=== PATIENT | female | born 1980 | race Caucasian/White ===

== ENCOUNTER 2017-08-20 13:05 | Emergency (ER) | payer MEDICAID ==
--- NOTE | 2017-08-20 13:19 | EDM.PDOCBH ---
ED HPI GENERAL MEDICAL PROBLEM - General Chief Complaint: Behavioral/Psych Stated Complaint: SUICIDAL IDEATIONS Time Seen by Provider: 08/20/17 13:18 Source of Information: Reports: Patient - History of Present Illness INITIAL COMMENTS - FREE TEXT/NARRATIVE: Patient is voluntarily brought here to the emergency room today by her friend/ roommate for evaluation for suicidal ideations. Patient states that she has been chronically depressed, she was previously on medication for this but has been out for some time now. She has a diagnosis of bipolar disorder, had been seeing psychiatry in [place] but is not currently seeing psychiatry. Patient has not been taking her prescribed medications for several days. She has been taking street benzodiazepines per her report. Patient also has a history of epilepsy that was diagnosed at a very young age. She has been taken off her Tegretol by her provider in [place] over a month ago. Patient primary residence is in [facility], she does not have a provider here in [place]. Patient is currently not working. She states that she passes the time by take drinking alcohol lately as she feels quite depressed. She states that she doesn't have a history of chronic alcohol use this has been a rather recent thing for her that she has been trying to treat her depression with. Patient has a very strong family history of psychiatric illness. Her brother and sister have both committed suicide. Patient is also more depressed as she and her have recently split up, her did go back to [place] with the 13 and 17-year-old children that they have together. Patient's adult child is living on their own. Patient is here today to get help. She states that it "it's time" and she is ready to get away from the alcohol and street benzodiazepines that she has been taking. She also wishes psychiatric help for her depression and suicidal ideations. I did ask patient if she be willing to be hospitalized for this, patient states that she would be. She states that she did pack a bit of extra" in hopes that she will be able to get help she needs. Patient is a full code. - Related Data Allergies Allergy/AdvReac Type Severity Reaction Status Date / Time ondansetron Allergy Rash Verified 08/20/17 13:22 [From Zofran (as hydrochloride)] tramadol Allergy Seizure Verified 08/20/17 13:22 Home Meds: Home Meds Doxepin [SINEquan] 100 mg PO BEDTIME 08/20/17 [History] Gabapentin [Neurontin] 400 mg PO BID 08/20/17 [History] Gabapentin [Neurontin] 800 mg PO BEDTIME 08/20/17 [History] OLANZapine [Olanzapine] 15 mg PO DAILY 08/20/17 [History] Venlafaxine HCl [Venlafaxine ER] 150 mg PO DAILY 08/20/17 [History] hydrOXYzine Pamoate [Hydroxyzine Pamoate] 50 mg PO Q6H PRN 08/20/17 [History] Past Medical History HEENT History: Reports: None Cardiovascular History: Reports: Arrhythmia Respiratory History: Reports: PE Gastrointestinal History: Reports: None Genitourinary History: Reports: UTI, 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 She's not on any antiseizure medications this time) Psychiatric History: Reports: Anxiety, Depression Endocrine/Metabolic History: Reports: None Hematologic History: Reports: Other (See Below) Other Hematologic History: clotting disorder Immunologic History: Reports: None Oncologic (Cancer) History: Reports: None - Infectious Disease History Infectious Disease History: Reports: None - Past Surgical History Female Surgical History: Reports: Section, D&C, Tubal Ligation Social & Family History - Family History Family Medical History: Noncontributory Psychiatric: Reports: Anxiety, Depression, Emotional Problems - Tobacco Use Smoking Status *Q: Current Every Day Smoker Years of Tobacco use: 20 Packs/Tins Daily: 1 Second Hand Smoke Exposure: Yes - Alcohol Use Days Per Week of Alcohol Use: 0 - Recreational Drug Use Recreational Drug Use: No Drug Use in Last 12 Months: Yes Recreational Drug Type: Reports: Ecstasy, Marijuana/Hashish, Other (see below) Recreational Drug Use Frequency: Socially - Living Situation & Occupation Living situation: Reports: with Spouse ED ROS GENERAL - Review of Systems Review Of Systems: See Below Constitutional: Reports: Weakness, Fatigue, Decreased Appetite. Denies: Fever HEENT: Reports: No Symptoms Respiratory: Reports: No Symptoms Cardiovascular: Reports: No Symptoms GI/Abdominal: Reports: Diarrhea, Decreased Appetite. Denies: Abdominal Pain, Black Stool, Bloody Stool, Constipation, Hematemesis, Hematochezia, Melena : Reports: No Symptoms Musculoskeletal: Reports: No Symptoms Skin: Reports: No Symptoms Neurological: Reports: Headache, Seizure (History since young age, none recently.). Denies: Confusion, Dizziness, Numbness, Syncope Hematologic/Lymphatic: Reports: No Symptoms Immunologic: Reports: No Symptoms ED EXAM, BEHAVIORAL HEALTH - Physical Exam Exam: See Below General Appearance: Alert, WD/WN, Anxious COURSE, BEHAVIORAL HEALTH COMP - Course Vital Signs: Last Vital Signs Temp 97.2 F 08/20/17 13:17 Pulse 102 H 08/20/17 13:17 Resp 18 08/20/17 13:17 BP 129/69 08/20/17 13:17 Pulse Ox 99 08/20/17 13:17 Orders, Labs, Meds: Active Orders 24 hr Category Date Time Status EKG 12 Lead [EKG Documentation Completion] [RC] STAT Care 08/20/17 13:40 Active Sodium Chloride 0.9% [Normal Saline] 1,000 ml Med 08/20/17 15:17 Ordered IV ONETIME Medication Orders Sodium Chloride (Normal Saline) 1,000 mls @ 999 mls/hr IV ONETIME ONE Stop: 08/20/17 16:17 Last Admin: 08/20/17 15:35 Dose: 999 mls/hr Laboratory Tests 08/20/17 08/20/17 08/20/17 Range/Units 14:00 14:00 14:00 WBC 5.84 (3.98-10.04) K/mm3 RBC 4.26 (3.98-5.22) M/mm3 Hgb 13.5 (11.2-15.7) gm/L Hct 38.8 (34.1-44.9) % MCV 91.1 (79.4-94.8) fl MCH 31.7 (25.6-32.2) pg MCHC 34.8 (32.2-35.5) g/dl RDW Std Deviation 42.4 (36.4-46.3) fL Plt Count 256 (182-369) K/mm3 MPV 9.8 (9.4-12.3) fl Neutrophils % (Manual) 38 L (40-60) % Band Neutrophils % 0 (0-10) % Lymphocytes % (Manual) 53 H (20-40) % Atypical Lymphs % 0 % Monocytes % (Manual) 5 (2-10) % Eosinophils % (Manual) 2 (0.7-5.8) % Basophils % (Manual) 1 (0.1-1.2) Myelocytes % 1 Platelet Estimate Adequate Plt Morphology Comment Normal RBC Morph Comment Normal Sodium 142 (136-145) mEq/L Potassium 4.1 (3.5-5.1) mEq/L Chloride 105 (98-107) mEq/L Carbon Dioxide 25 (21-32) mEq/L Anion Gap 16.1 H (5-15) BUN 16 (7-18) mg/dL Creatinine 0.7 (0.55-1.02) mg/dL Est Cr Clr Drug Dosing 121.79 mL/min Estimated GFR (MDRD) > 60 (>60) mL/min BUN/Creatinine Ratio 22.9 H (14-18) Glucose 121 H (74-106) mg/dL Calcium 8.5 (8.5-10.1) mg/dL Total Bilirubin 0.2 (0.2-1.0) mg/dL AST 131 H (15-37) U/L ALT 113 H (14-59) U/L Alkaline Phosphatase 102 (46-116) U/L Total Protein 7.3 (6.4-8.2) g/dl Albumin 3.5 (3.4-5.0) g/dl Globulin 3.8 gm/dL Albumin/Globulin Ratio 0.9 L (1-2) TSH 3rd Generation 0.906 (0.358-3.74) uIU/mL Urine Color (Yellow) Urine Appearance (Clear) Urine pH (5.0-8.0) Ur Specific [place] (1.005-1.030) Urine Protein (Negative) Urine Glucose (UA) (Negative) Urine Ketones (Negative) Urine Occult Blood (Negative) Urine Nitrite (Negative) Urine Bilirubin (Negative) Urine Urobilinogen (0.2-1.0) Ur Leukocyte Esterase (Negative) Urine RBC (0-5) /hpf Urine WBC (0-5) /hpf Ur Epithelial Cells (0-5) /hpf Urine Bacteria (FEW) /hpf Urine Mucus (FEW) /hpf Urine HCG, Qual (NEGATIVE) Salicylates 2.5 L (2.8-20) mg/dL Urine Opiates Screen (NEGATIVE) Ur Buprenorphine Scrn (NEGATIVE) Ur Oxycodone Screen (NEGATIVE) Urine Methadone Screen (NEGATIVE) Ur Propoxyphene Screen (NEGATIVE) Acetaminophen 0 L (10-30) ug/mL Ur Barbiturates Screen (NEGATIVE) Ur Tricyclics Screen (NEGATIVE) Ur Phencyclidine Scrn (NEGATIVE) Ur Amphetamine Screen (NEGATIVE) U Methamphetamines Scrn (NEGATIVE) U Benzodiazepines Scrn (NEGATIVE) U Cocaine Metab Screen (NEGATIVE) U Marijuana (THC) Screen (NEGATIVE) Ethyl Alcohol 0.12 (0.00) gm% 08/20/17 08/20/17 08/20/17 Range/Units 14:05 14:05 14:05 WBC (3.98-10.04) K/mm3 RBC (3.98-5.22) M/mm3 Hgb (11.2-15.7) gm/L Hct (34.1-44.9) % MCV (79.4-94.8) fl MCH (25.6-32.2) pg MCHC (32.2-35.5) g/dl RDW Std Deviation (36.4-46.3) fL Plt Count (182-369) K/mm3 MPV (9.4-12.3) fl Neutrophils % (Manual) (40-60) % Band Neutrophils % (0-10) % Lymphocytes % (Manual) (20-40) % Atypical Lymphs % % Monocytes % (Manual) (2-10) % Eosinophils % (Manual) (0.7-5.8) % Basophils % (Manual) (0.1-1.2) Myelocytes % Platelet Estimate Plt Morphology Comment RBC Morph Comment Sodium (136-145) mEq/L Potassium (3.5-5.1) mEq/L Chloride (98-107) mEq/L Carbon Dioxide (21-32) mEq/L Anion Gap (5-15) BUN (7-18) mg/dL Creatinine (0.55-1.02) mg/dL Est Cr Clr Drug Dosing mL/min Estimated GFR (MDRD) (>60) mL/min BUN/Creatinine Ratio (14-18) Glucose (74-106) mg/dL Calcium (8.5-10.1) mg/dL Total Bilirubin (0.2-1.0) mg/dL AST (15-37) U/L ALT (14-59) U/L Alkaline Phosphatase (46-116) U/L Total Protein (6.4-8.2) g/dl Albumin (3.4-5.0) g/dl Globulin gm/dL Albumin/Globulin Ratio (1-2) TSH 3rd Generation (0.358-3.74) uIU/mL Urine Color Yellow (Yellow) Urine Appearance Clear (Clear) Urine pH 6.5 (5.0-8.0) Ur Specific [place] 1.025 (1.005-1.030) Urine Protein Negative (Negative) Urine Glucose (UA) Negative (Negative) Urine Ketones Negative (Negative) Urine Occult Blood Negative (Negative) Urine Nitrite Negative (Negative) Urine Bilirubin Negative (Negative) Urine Urobilinogen 0.2 (0.2-1.0) Ur Leukocyte Esterase Negative (Negative) Urine RBC Not seen (0-5) /hpf Urine WBC 0-5 (0-5) /hpf Ur Epithelial Cells 0-5 (0-5) /hpf Urine Bacteria Many H (FEW) /hpf Urine Mucus Few (FEW) /hpf Urine HCG, Qual Negative (NEGATIVE) Salicylates (2.8-20) mg/dL Urine Opiates Screen Negative (NEGATIVE) Ur Buprenorphine Scrn Negative (NEGATIVE) Ur Oxycodone Screen Negative (NEGATIVE) Urine Methadone Screen Negative (NEGATIVE) Ur Propoxyphene Screen Negative (NEGATIVE) Acetaminophen (10-30) ug/mL Ur Barbiturates Screen Negative (NEGATIVE) Ur Tricyclics Screen Negative (NEGATIVE) Ur Phencyclidine Scrn Negative (NEGATIVE) Ur Amphetamine Screen Negative (NEGATIVE) U Methamphetamines Scrn Negative (NEGATIVE) U Benzodiazepines Scrn Presumptive positive H (NEGATIVE) U Cocaine Metab Screen Negative (NEGATIVE) U Marijuana (THC) Screen Negative (NEGATIVE) Ethyl Alcohol (0.00) gm% Medications Generic Name Dose Route Start Last Admin Trade Name Freq PRN Reason Stop Dose Admin Sodium Chloride 1,000 mls @ 999 mls/hr 08/20/17 15:17 08/20/17 15:35 Normal Saline IV 08/20/17 16:17 999 mls/hr ONETIME ONE Administration Discontinued Medications Generic Name Dose Route Start Last Admin Trade Name Freq PRN Reason Stop Dose Admin Loperamide HCl 4 mg 08/20/17 15:41 Imodium PO 08/20/17 15:42 ONETIME ONE Lorazepam 1 mg 08/20/17 13:41 08/20/17 13:52 Ativan PO 08/20/17 13:42 1 mg ONETIME ONE Administration Lorazepam 0.5 mg 08/20/17 15:41 Ativan IVPUSH 08/20/17 15:42 ONETIME ONE Promethazine HCl 50 mg 08/20/17 14:28 08/20/17 14:49 Phenergan IM 08/20/17 14:29 50 mg ONETIME ONE Administration Medical Clearance: Patient is a current risk of harm to herself and willing to voluntarily be admitted to psychiatry. Urine is positive for benzodiazepenes, ETOH is 0.12. This patient is a current high risk of danger to herself as well as high risk of withdrawal seizure with her history of epilepsy and her recent alcohol abuse. She will need to be transported by ambulance. Dr. Baca/psychiatry at [facility] in [place] is willing to accept the patient. She will arrived via the emergency room, Dr. Almeida will examine her and ensure she is cleared to be admitted to psychiatry at that time. Patient is currently receiving 1 L of this normal saline this to be completed prior to her arrival at [facility]. Must keep IV access due to seizure risk until she arrives at the higher level facility. 08/20/17 15:42 Departure - Departure Time of Disposition: 15:44 Disposition: DC/Tfer to Psych Hosp/Unit 65 Condition: Fair Clinical Impression: Alcohol abuse, Epilepsy Suicidal behavior Qualifiers: Attempted self-injury: without attempted self-injury Qualified Code(s): R46.89 - Other symptoms and signs involving appearance and behavior Depression Qualifiers: Major depression recurrence: recurrent - Discharge Information Referrals: PCP,None [Primary Care Provider] - Forms: ED Department Discharge - My Orders Last 24 Hours: My Active Orders 08/20/17 13:40 EKG 12 Lead [EKG Documentation Completion] [RC] STAT 08/20/17 15:17 Sodium Chloride 0.9% [Normal Saline] 1,000 ml IV ONETIME - Assessment/Plan Last 24 Hours: My Active Orders 08/20/17 13:40 EKG 12 Lead [EKG Documentation Completion] [RC] STAT 08/20/17 15:17 Sodium Chloride 0.9% [Normal Saline] 1,000 ml IV ONETIME
[2017-08-20 13:22] VITALS: BP 129/69
[2017-08-20] MEDS ORDERED: LORazepam 1 MG Tab PO ONE (13:41)
[2017-08-20] MEDS ORDERED: Promethazine 25 MG/ML SDV IM ONE (14:28)
[2017-08-20 14:39] LABS: ACETAMINOPHEN 0 ug/mL (10-30)
[2017-08-20] MEDS ORDERED: Sodium Chloride 0.9% 1,000 ML IV ONE (15:17)
[2017-08-20] MEDS ORDERED: LORazepam 2 MG/ML MDV IVPUSH ONE (15:41)
[2017-08-20] MEDS ORDERED: Loperamide 2 MG Cap PO ONE (15:41)
== END 2017-08-20 16:00 ==
LOC: JD.ED 13:05
DX: G40.909 Epilepsy, unspecified, not intractable, without status epilepticus (principal); F32.9 Major depressive disorder, single episode, unspecified; F10.10 Alcohol abuse, uncomplicated; F17.210 Nicotine dependence, cigarettes, uncomplicated; Z88.5 Allergy status to narcotic agent; Z88.8 Allergy status to other drugs, medicaments and biological substances; Z79.899 Other long term (current) drug therapy; Y90.1 Blood alcohol level of 20-39 mg/100 ml
CPT/HCPCS: 36415; 80053; 80306; 81001; 81025; 84443; 85025; 93005; 96372; 96374; 99285; A9270; G0480; J2060; J2550; J7040; 93010

== ENCOUNTER 2018-08-20 04:21 | Emergency (ER) | payer MEDICAID ==
[2018-08-20 04:38] VITALS: BP 126/97
--- NOTE | 2018-08-20 04:45 | EDM.PDOC ---
ED HPI GENERAL MEDICAL PROBLEM - General Chief Complaint: Chest Pain Stated Complaint: CHEST PAIN Time Seen by Provider: 08/20/18 04:31 - History of Present Illness INITIAL COMMENTS - FREE TEXT/NARRATIVE: Patient presents with multiple complaints nausea vomiting worsening cough and chest pain. This all started tonight she had a worsening cough no fever as the cough worsened she developed some vomiting it is unclear to me if this is associated with cough. And she developed some chest pain. Patient states she has not used meth since yesterday. Her chest pain seems to be worse with coughing and was actually brought on by coughing is worsened with deep breathing. Left Chest Pain Score (Numeric/FACES): 2 - Related Data Allergies Allergy/AdvReac Type Severity Reaction Status Date / Time ondansetron Allergy Rash Verified 08/20/18 04:34 [From Zofran (as hydrochloride)] tramadol Allergy Seizure Verified 08/20/18 04:34 Home Meds: Home Meds Doxepin [SINEquan] 100 mg PO BEDTIME 08/20/17 [History] Gabapentin [Neurontin] 400 mg PO BID 08/20/17 [History] Gabapentin [Neurontin] 800 mg PO BEDTIME 08/20/17 [History] OLANZapine [Olanzapine] 15 mg PO DAILY 08/20/17 [History] Venlafaxine HCl [Venlafaxine ER] 150 mg PO DAILY 08/20/17 [History] hydrOXYzine pamoate [Hydroxyzine Pamoate] 50 mg PO Q6H PRN 08/20/17 [History] Past Medical History HEENT History: Reports: None Cardiovascular History: Reports: Arrhythmia Respiratory History: Reports: PE Gastrointestinal History: Reports: None Genitourinary History: Reports: UTI, 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 She's not on any antiseizure medications this time) Psychiatric History: Reports: Anxiety, Depression Endocrine/Metabolic History: Reports: None Hematologic History: Reports: Other (See Below) Other Hematologic History: clotting disorder Immunologic History: Reports: None Oncologic (Cancer) History: Reports: None - Infectious Disease History Infectious Disease History: Reports: None - Past Surgical History Female Surgical History: Reports: Section, D&C, Tubal Ligation Social & Family History - Family History Family Medical History: Noncontributory Psychiatric: Reports: Anxiety, Depression, Emotional Problems - Caffeine Use Caffeine Use: Reports: None - Living Situation & Occupation Living situation: Reports: with Spouse ED ROS GENERAL - Review of Systems Review Of Systems: See Below Constitutional: Denies: Fever, Chills HEENT: Reports: No Symptoms Respiratory: Reports: Pleuritic Chest Pain, Cough. Denies: Shortness of Breath , Wheezing, Sputum Cardiovascular: Reports: Chest Pain (Sounds pleuritic in nature) Endocrine: Reports: No Symptoms GI/Abdominal: Reports: Vomiting. Denies: Abdominal Pain, Constipation : Reports: No Symptoms Musculoskeletal: Reports: No Symptoms Skin: Reports: No Symptoms Neurological: Reports: No Symptoms ED EXAM, GENERAL - Physical Exam Exam: See Below Exam Limited By: Other (Patient appears to be under the effect of some sort of stimulant medication. Her speech is rushed) General Appearance: Alert, No Apparent Distress Nose: Normal Inspection, Normal Mucosa, No Blood Throat/Mouth: Normal Inspection, Normal Lips, Normal Teeth, Normal Gums, Normal Oropharynx, Normal Voice, No Airway Compromise Head: Atraumatic, Normocephalic Neck: Normal Inspection, Supple, Non-Tender, Full Range of Motion Respiratory/Chest: No Respiratory Distress, Lungs Clear, Normal Breath Sounds Cardiovascular: Regular Rate, Rhythm, No Edema, No Murmur GI/Abdominal: Normal Bowel Sounds, Soft, Non-Tender Back Exam: Normal Inspection. No: CVA Tenderness (L), CVA Tenderness (R) Extremities: Normal Inspection, No Pedal Edema EKG INTERPRETATION EKG Date: 08/20/18 Rhythm: NSR Rate (Beats/Min): 81 [place]: Normal P-Wave: Present QRS: Normal ST-T: Normal QT: Normal Comparison: No Change (No significant change from 06/15/18 done in [place].) EKG Interpretation Comments: normal EKG Course - Vital Signs Last Recorded V/S: Last Vital Signs Temp 36.1 C 08/20/18 04:34 Pulse 83 08/20/18 04:34 Resp 24 H 08/20/18 04:34 BP 126/97 H 08/20/18 04:34 Pulse Ox 100 08/20/18 04:34 - Orders/Labs/Meds Orders: Active Orders 24 hr Category Date Time Status Chest 2V [CR] Stat Exams 08/20/18 04:46 Taken Meds: Medications Discontinued Medications Generic Name Dose Route Start Last Admin Trade Name Gonzalez PRN Reason Stop Dose Admin Meclizine HCl 12.5 mg 08/20/18 04:50 08/20/18 05:05 Antivert PO 08/20/18 04:51 12.5 mg ONETIME ONE Administration - Re-Assessments/Exams Free Text/Narrative Re-Assessment/Exam: 08/20/18 05:41 Patient had a chest x-ray done that shows no acute cardiopulmonary changes. I did discuss this with the patient as she was requesting something for nausea I just gave her some meclizine and she insisted that this was not for nausea I told her it works well with nausea and also her dizziness. At that point she became further upset and was demanding blood work. She went on to sign out AMA sometime during this her influenza came back negative. Departure - Departure Time of Disposition: 05:35 Disposition: Against Medical Advice 07 Clinical Impression: Bronchitis, Viral illness, History of methamphetamine use - Discharge Information Referrals: PCP,None [Primary Care Provider] - Forms: ED Department Discharge - My Orders Last 24 Hours: My Active Orders 08/20/18 04:46 Chest 2V [CR] Stat - Assessment/Plan Last 24 Hours: My Active Orders 08/20/18 04:46 Chest 2V [CR] Stat
[2018-08-20] MEDS ORDERED: Meclizine 12.5 MG Tab PO ONE (04:50)
--- NOTE | 2018-08-20 10:18 | CR ---
Chest: Two views of the chest were obtained. Comparison: No prior chest x-ray. Heart size and mediastinum are normal. Slight density noted within the lateral left costophrenic angle either due to atelectasis or scarring. Minimal density noted within the medial right upper lung most likely due to atelectasis. Lungs are slightly hyperinflated. Bony structures are unremarkable. Impression: 1. Findings as noted above. 2. Slightly hyperinflated lungs either due to good inspiratory effort if patient has no history of smoking or asthma. 3. Nothing acute is definitely appreciated. Diagnostic code #2
== END 2018-08-20 05:26 | disposition left against medical advice (07) ==
LOC: JD.ED 04:21
DX: J40 Bronchitis, not specified as acute or chronic (principal); B34.9 Viral infection, unspecified; F15.90 Other stimulant use, unspecified, uncomplicated; Z79.899 Other long term (current) drug therapy; Z88.5 Allergy status to narcotic agent; Z88.8 Allergy status to other drugs, medicaments and biological substances
CPT/HCPCS: 71046; 87804; 99285; A9270; 99283

== ENCOUNTER 2018-08-20 11:11 | Emergency (ER) | payer MEDICAID ==
[2018-08-20] MEDS ORDERED: Promethazine 25 MG Tab PO STA (11:44)
--- NOTE | 2018-08-20 12:02 | EDM.PDOC ---
ED HPI GENERAL MEDICAL PROBLEM - General Chief Complaint: Respiratory Problem Stated Complaint: CHEST PAIN Time Seen by Provider: 08/20/18 11:37 Source of Information: Reports: Patient, Old Records (recent ER records) History Limitations: Reports: No Limitations - History of Present Illness INITIAL COMMENTS - FREE TEXT/NARRATIVE: 38-year-old female presents for evaluation and treatment of chest pain and a productive cough. Patient is failing around the room, actively moving very anxious. She be appears to be under influence of a controlled substance. She denied any methamphetamine use today or yesterday. Patient was seen in the ER this morning she had a chest x-ray, EKG and influenza done. She left AMA before any additional testing could be done. Patient presents now stating she's feeling sick for the last 4 days. She reports that the symptoms started 4 days ago with a chest cold. She is currently complaining of chills, nausea, vomiting a sore throat. She also reports she has swollen glands is coughing up a thick sputum with blood in it. Reportedly she is vomiting every 10 minutes. She is also complaining of left ear pain. Patient reports chest pain and pressure throughout her entire chest. She states that she has a history of PE blood clots 2. She is not currently on any anticoagulants for this. She reports both of these were provoked from either or oral contraceptives. She denies any chance of at this time. Patient also complaining she's been having some back pain and hematuria. Denies any dysuria. Chest Pain Score (Numeric/FACES): 4 - Related Data Allergies Allergy/AdvReac Type Severity Reaction Status Date / Time ondansetron Allergy Rash Verified 08/20/18 11:22 [From Zofran (as hydrochloride)] tramadol Allergy Seizure Verified 08/20/18 11:22 Home Meds: Home Meds Doxepin [SINEquan] 100 mg PO BEDTIME 08/20/17 [History] Gabapentin [Neurontin] 400 mg PO BID 08/20/17 [History] Gabapentin [Neurontin] 800 mg PO BEDTIME 08/20/17 [History] OLANZapine [Olanzapine] 15 mg PO DAILY 08/20/17 [History] Venlafaxine HCl [Venlafaxine ER] 150 mg PO DAILY 08/20/17 [History] hydrOXYzine pamoate [Hydroxyzine Pamoate] 50 mg PO Q6H PRN 08/20/17 [History] Benzonatate [Tessalon Perle] 100 mg PO TID PRN #15 capsule 08/20/18 [Rx] Promethazine [Phenergan] 25 mg PO Q8H PRN #12 tab 08/20/18 [Rx] Past Medical History HEENT History: Reports: None Cardiovascular History: Reports: Arrhythmia Respiratory History: Reports: PE Gastrointestinal History: Reports: None Genitourinary History: Reports: UTI, Recurrent 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: 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 E COMMERCE ANALYST History: Ovarian cyst Musculoskeletal History: Reports: Neck Pain, Chronic Neurological History: Reports: Seizure Psychiatric History: Reports: Anxiety, Depression Endocrine/Metabolic History: Reports: None Hematologic History: Reports: Other (See Below) Other Hematologic History: clotting disorder Immunologic History: Reports: None Oncologic (Cancer) History: Reports: None - Infectious Disease History Infectious Disease History: Reports: None - Past Surgical History Female Surgical History: Reports: Section, D&C, Tubal Ligation Social & Family History - Family History Family Medical History: Noncontributory Psychiatric: Reports: Anxiety, Depression, Emotional Problems - Tobacco Use Smoking Status *Q: Current Every Day Smoker Years of Tobacco use: 10 Packs/Tins Daily: 1 - Caffeine Use Caffeine Use: Reports: Coffee, Soda - Recreational Drug Use Recreational Drug Use: Yes Drug Use in Last 12 Months: Yes Recreational Drug Type: Reports: Methamphetamine Other Recreational Drug Type: pt states "probably everything on your list" Recreational Drug Use Frequency: Weekly - Living Situation & Occupation Living situation: Reports: with Spouse ED ROS GENERAL - Review of Systems Review Of Systems: See Below Constitutional: Reports: Chills. Denies: Fever HEENT: Reports: Ear Pain, Throat Pain Respiratory: Reports: Shortness of Breath, Cough, Sputum, Hemoptysis Cardiovascular: Reports: Chest Pain GI/Abdominal: Reports: Nausea, Vomiting : Reports: Hematuria. Denies: Dysuria Musculoskeletal: Reports: Back Pain ED EXAM, GENERAL - Physical Exam Exam: See Below Exam Limited By: No Limitations General Appearance: Alert, WD/WN, No Apparent Distress, Anxious, Other ( fidgiting, pacing) Respiratory/Chest: No Respiratory Distress, Lungs Clear, Normal Breath Sounds Cardiovascular: Normal Peripheral Pulses, Regular Rate, Rhythm, No Murmur Neurological: Alert Psychiatric: Anxious Skin Exam: Warm, Dry, Normal Color Course - Vital Signs Last Recorded V/S: Last Vital Signs Temp 98.2 F 08/20/18 11:19 Pulse 90 08/20/18 12:13 Resp 20 08/20/18 12:13 BP 118/77 08/20/18 12:13 Pulse Ox 100 08/20/18 12:13 - Orders/Labs/Meds Orders: Active Orders 24 hr Category Date Time Status Cardiac Monitoring [RC] . DIRECTED Care 08/20/18 12:51 Active Peripheral IV Care [RC] . DIRECTED Care 08/20/18 12:51 Active CULTURE URINE [RM] Stat Lab 08/20/18 11:50 Received Peripheral IV Insertion Adult [OM.PC] Routine Oth 08/20/18 12:51 Ordered Labs: Laboratory Tests 08/20/18 08/20/18 08/20/18 Range/Units 11:50 11:50 11:54 WBC 13.99 H (3.98-10.04) K/mm3 RBC 4.08 (3.98-5.22) M/mm3 Hgb 12.5 (11.2-15.7) gm/L Hct 37.3 (34.1-44.9) % MCV 91.4 (79.4-94.8) fl MCH 30.6 (25.6-32.2) pg MCHC 33.5 (32.2-35.5) g/dl RDW Std Deviation 40.2 (36.4-46.3) fL Plt Count 380 H (182-369) K/mm3 MPV 10.3 (9.4-12.3) fl Neut % (Auto) 67.5 (34.0-71.1) % Lymph % (Auto) 22.0 (19.3-51.7) % [place] % (Auto) 9.3 (4.7-12.5) % Eos % (Auto) 0.6 L (0.7-5.8) Baso % (Auto) 0.5 (0.1-1.2) % Neut # (Auto) 9.43 H (1.56-6.13) K/mm3 Lymph # (Auto) 3.08 (1.18-3.74) K/mm3 [place] # (Auto) 1.30 H (0.24-0.36) K/mm3 Eos # (Auto) 0.09 (0.04-0.36) K/mm3 Baso # (Auto) 0.07 (0.01-0.08) K/mm3 D-Dimer, Quantitative (0.19-0.50) mg/L Sodium (136-145) mEq/L Potassium (3.5-5.1) mEq/L Chloride (98-107) mEq/L Carbon Dioxide (21-32) mEq/L Anion Gap (5-15) BUN (7-18) mg/dL Creatinine (0.55-1.02) mg/dL Est Cr Clr Drug Dosing mL/min Estimated GFR (MDRD) (>60) mL/min BUN/Creatinine Ratio (14-18) Glucose (74-106) mg/dL Calcium (8.5-10.1) mg/dL Total Bilirubin (0.2-1.0) mg/dL AST (15-37) U/L ALT (14-59) U/L Alkaline Phosphatase (46-116) U/L C-Reactive Protein (<1.0) mg/dL Total Protein (6.4-8.2) g/dl Albumin (3.4-5.0) g/dl Globulin gm/dL Albumin/Globulin Ratio (1-2) Urine Color Dark yellow (Yellow) Urine Appearance Cloudy H (Clear) Urine pH 5.5 (5.0-8.0) Ur Specific [place] > or = 1.030 (1.005-1.030) Urine Protein 2+ H (Negative) Urine Glucose (UA) Negative (Negative) Urine Ketones Trace H (Negative) Urine Occult Blood 2+ H (Negative) Urine Nitrite Negative (Negative) Urine Bilirubin 1+ H (Negative) Urine Urobilinogen 0.2 (0.2-1.0) Ur Leukocyte Esterase 1+ H (Negative) Urine RBC 5-10 H (0-5) /hpf Urine WBC 10-20 H (0-5) /hpf Ur Epithelial Cells 10-20 H (0-5) /hpf Urine Bacteria Moderate H (FEW) /hpf Urine Mucus Few (FEW) /hpf Urine Opiates Screen Negative (FUGRMA=771) Ur Buprenorphine Scrn Presumptive positive (CUTOFF=10) Ur Oxycodone Screen Negative (PEH2IS=156) Urine Methadone Screen Negative (OGPMYQ=886) Ur Propoxyphene Screen Negative (INEXWL=422) Ur Barbiturates Screen Negative (NCQBNE=849) Ur Tricyclics Screen Negative (GJLDQP=729) Ur Phencyclidine Scrn Negative (CUTOFF=25) Ur Amphetamine Screen Presumptive positive H (XFFUPP=695) U Methamphetamines Scrn Presumptive positive H (JUTIAU=556) U Benzodiazepines Scrn Presumptive positive H (XOZUMM=450) U Cocaine Metab Screen Negative (OQXGRO=356) U Marijuana (THC) Screen Negative (CUTOFF=50) 08/20/18 08/20/18 Range/Units 11:54 11:54 WBC (3.98-10.04) K/mm3 RBC (3.98-5.22) M/mm3 Hgb (11.2-15.7) gm/L Hct (34.1-44.9) % MCV (79.4-94.8) fl MCH (25.6-32.2) pg MCHC (32.2-35.5) g/dl RDW Std Deviation (36.4-46.3) fL Plt Count (182-369) K/mm3 MPV (9.4-12.3) fl Neut % (Auto) (34.0-71.1) % Lymph % (Auto) (19.3-51.7) % [place] % (Auto) (4.7-12.5) % Eos % (Auto) (0.7-5.8) Baso % (Auto) (0.1-1.2) % Neut # (Auto) (1.56-6.13) K/mm3 Lymph # (Auto) (1.18-3.74) K/mm3 [place] # (Auto) (0.24-0.36) K/mm3 Eos # (Auto) (0.04-0.36) K/mm3 Baso # (Auto) (0.01-0.08) K/mm3 D-Dimer, Quantitative 0.53 H (0.19-0.50) mg/L Sodium 138 (136-145) mEq/L Potassium 4.2 (3.5-5.1) mEq/L Chloride 100 (98-107) mEq/L Carbon Dioxide 21 (21-32) mEq/L Anion Gap 21.2 H (5-15) BUN 24 H (7-18) mg/dL Creatinine 2.0 H (0.55-1.02) mg/dL Est Cr Clr Drug Dosing 40.56 mL/min Estimated GFR (MDRD) 28 (>60) mL/min BUN/Creatinine Ratio 12.0 L (14-18) Glucose 103 (74-106) mg/dL Calcium 9.1 (8.5-10.1) mg/dL Total Bilirubin 0.5 (0.2-1.0) mg/dL AST 81 H (15-37) U/L ALT 53 (14-59) U/L Alkaline Phosphatase 92 (46-116) U/L C-Reactive Protein 2.0 H* (<1.0) mg/dL Total Protein 8.0 (6.4-8.2) g/dl Albumin 4.3 (3.4-5.0) g/dl Globulin 3.7 gm/dL Albumin/Globulin Ratio 1.2 (1-2) Urine Color (Yellow) Urine Appearance (Clear) Urine pH (5.0-8.0) Ur Specific [place] (1.005-1.030) Urine Protein (Negative) Urine Glucose (UA) (Negative) Urine Ketones (Negative) Urine Occult Blood (Negative) Urine Nitrite (Negative) Urine Bilirubin (Negative) Urine Urobilinogen (0.2-1.0) Ur Leukocyte Esterase (Negative) Urine RBC (0-5) /hpf Urine WBC (0-5) /hpf Ur Epithelial Cells (0-5) /hpf Urine Bacteria (FEW) /hpf Urine Mucus (FEW) /hpf Urine Opiates Screen (BIMFTZ=687) Ur Buprenorphine Scrn (CUTOFF=10) Ur Oxycodone Screen (FJF0VZ=172) Urine Methadone Screen (EVYHOL=019) Ur Propoxyphene Screen (JFTPBR=506) Ur Barbiturates Screen (ZHPSWE=247) Ur Tricyclics Screen (MJSKLA=604) Ur Phencyclidine Scrn (CUTOFF=25) Ur Amphetamine Screen (IFQRNI=424) U Methamphetamines Scrn (NYKMJU=199) U Benzodiazepines Scrn (QMNAGE=495) U Cocaine Metab Screen (VVEWNO=816) U Marijuana (THC) Screen (CUTOFF=50) Meds: Medications Discontinued Medications Generic Name Dose Route Start Last Admin Trade Name Freq PRN Reason Stop Dose Admin Diphenhydramine HCl 25 mg 08/20/18 12:55 08/20/18 13:07 Benadryl IVPUSH 08/20/18 12:56 25 mg ONETIME ONE Administration Sodium Chloride 1,000 mls @ 999 mls/hr 08/20/18 12:51 08/20/18 13:06 Normal Saline IV 08/20/18 13:51 999 mls/hr ONETIME ONE Administration Sodium Chloride 1,000 mls @ 999 mls/hr 08/20/18 12:54 08/20/18 13:06 Normal Saline IV 08/20/18 13:54 999 mls/hr ONETIME ONE Administration Sodium Chloride 100 mls @ 60 mls/hr 08/20/18 13:15 Normal Saline IV ASDIRECTED KATHIE Iopamidol 100 ml 08/20/18 13:04 Isovue-370 (76%) IVPUSH 08/20/18 13:05 ONETIME ONE Lorazepam 1 mg 08/20/18 12:55 08/20/18 13:06 Ativan IVPUSH 08/20/18 12:56 1 mg ONETIME ONE Administration Metoclopramide HCl 5 mg 08/20/18 12:55 08/20/18 13:08 Reglan IVPUSH 08/20/18 12:56 5 mg ONETIME ONE Administration Promethazine HCl 25 mg 08/20/18 11:44 08/20/18 11:52 Phenergan PO 08/20/18 11:45 25 mg NOW STA Administration Sodium Chloride 10 ml 08/20/18 12:51 08/20/18 13:10 Saline Flush FLUSH 10 ml ASDIRECTED PRN Administration Keep Vein Open Sodium Chloride 10 ml 08/20/18 13:04 Saline Flush FLUSH 08/20/18 13:05 ONETIME ONE - Radiology Interpretation Free Text/Narrative:: CT chest Technique: Multiple axial sections through the chest were obtained. Intravenous contrast was utilized. Study has been performed as a pulmonary angiogram protocol. Findings: Pulmonary arteries are fairly well-opacified. No filling defects are seen to indicate pulmonary embolism. Small portion of the visualized upper abdominal structures appear within normal limits. No pericardial thickening is seen. Mediastinum and hilar regions show no adenopathy or mass. No axillary adenopathy is seen. Lung window settings were reviewed. Minimal scarring or atelectasis is seen within the left base. Lungs otherwise are clear. No pleural effusions are seen. No pneumothorax is identified. Bone window settings were reviewed. Very minimal degenerative change is noted within the thoracic spine. No acute osseous abnormality is appreciated. Impression: 1. No findings of pulmonary embolism. 2. Slight scarring or atelectasis within the left lung base. 3. Nothing acute is seen on CT study of the chest performed as a pulmonary angiogram protocol. - Re-Assessments/Exams Free Text/Narrative Re-Assessment/Exam: 08/20/18 14:55 Reviewed the labs and imaging with the patient. Will prescribe phenergran for the nausea and tessalon perles for the cough. Recommend drinking plenty of fluids as she is quite dehydrated. Give 2 L NS in the ER today. Recommend Follow -up Friday with family med for a recheck of symptoms and labs. Discharge instructions as documented. Departure - Departure Time of Disposition: 14:57 Disposition: Home, Self-Care 01 Condition: Fair Clinical Impression: Dehydration, Nausea & vomiting, Methamphetamine abuse - Discharge Information *PRESCRIPTION DRUG MONITORING PROGRAM REVIEWED*: No *COPY OF PRESCRIPTION DRUG MONITORING REPORT IN PATIENT TRACEY: No Prescriptions: Benzonatate [Tessalon Perle] 100 mg PO TID PRN #15 capsule PRN Reason: Cough Promethazine [Phenergan] 25 mg PO Q8H PRN #12 tab PRN Reason: Nausea Instructions: Stimulant Use Disorder-Methamphetamines Referrals: PCP,None [Primary Care Provider] - Jill Barry PA [Physician Photograph Mounter] - Forms: ED Department Discharge Additional Instructions: Drink plenty of clear fluids. May drink water, gatorade, powerade or soup broth. Small frequent sips. [place] diet tomorrow as tolerated. You were given medication in the ER that can affect your ability to drive and operate machinery. Do not drive or operate machinery today. Tessalon perles 1 cap PO tid prn cough. Phenergran 1 tab PO tid prn nausea. Stop using illicit substances. Methamphetamine is very dangerous and will kill you. Information on drug and alcohol abuse resources in the area has been provided. Follow-up with family medicine Friday for a recheck of your symptoms and labs. In [place] recommend Jill Barry or Georgina Bynum at the [facility]. Call [phone] to schedule with one of these providers. Please return to the ER should your symptoms change or worsen. - My Orders Last 24 Hours: My Active Orders 08/20/18 11:50 CULTURE URINE [RM] Stat 08/20/18 12:51 Cardiac Monitoring [RC] . DIRECTED Peripheral IV Care [RC] . DIRECTED Peripheral IV Insertion Adult [OM.PC] Routine - Assessment/Plan Last 24 Hours: My Active Orders 08/20/18 11:50 CULTURE URINE [RM] Stat 08/20/18 12:51 Cardiac Monitoring [RC] . DIRECTED Peripheral IV Care [RC] . DIRECTED Peripheral IV Insertion Adult [OM.PC] Routine
[2018-08-20 12:14] VITALS: BP 118/77
[2018-08-20] MEDS ORDERED: Sodium Chloride 0.9% 1,000 ML IV ONE ×2 (12:51→12:54)
[2018-08-20] MEDS ORDERED: Sodium Chloride 0.9% 10 ML Syringe FLUSH PRN (12:51)
[2018-08-20] MEDS ORDERED: Metoclopramide 10 MG/2 ML SDV IVPUSH ONE (12:55)
[2018-08-20] MEDS ORDERED: LORazepam 2 MG/ML SDV IVPUSH ONE (12:55)
[2018-08-20] MEDS ORDERED: diphenhydrAMINE 50 MG/ML SDV IVPUSH ONE (12:55)
[2018-08-20] MEDS ORDERED: Iopamidol 755 Mg/ML 100 ML Bottle IVPUSH ONE (13:04)
[2018-08-20] MEDS ORDERED: Sodium Chloride 0.9% 10 ML Syringe FLUSH ONE (13:04)
[2018-08-20] MEDS ORDERED: Sodium Chloride 0.9% 100 ML IV SCH (13:15)
--- NOTE | 2018-08-20 14:16 | CT ---
CT chest Technique: Multiple axial sections through the chest were obtained. Intravenous contrast was utilized. Study has been performed as a pulmonary angiogram protocol. Findings: Pulmonary arteries are fairly well-opacified. No filling defects are seen to indicate pulmonary embolism. Small portion of the visualized upper abdominal structures appear within normal limits. No pericardial thickening is seen. Mediastinum and hilar regions show no adenopathy or mass. No axillary adenopathy is seen. Lung window settings were reviewed. Minimal scarring or atelectasis is seen within the left base. Lungs otherwise are clear. No pleural effusions are seen. No pneumothorax is identified. Bone window settings were reviewed. Very minimal degenerative change is noted within the thoracic spine. No acute osseous abnormality is appreciated. Impression: 1. No findings of pulmonary embolism. 2. Slight scarring or atelectasis within the left lung base. 3. Nothing acute is seen on CT study of the chest performed as a pulmonary angiogram protocol. Diagnostic code #2
== END 2018-08-20 15:15 | disposition home or self-care (01) ==
LOC: JD.ED 11:11
DX: E86.0 Dehydration (principal); R11.2 Nausea with vomiting, unspecified; F15.10 Other stimulant abuse, uncomplicated; F41.9 Anxiety disorder, unspecified; F32.9 Major depressive disorder, single episode, unspecified; Z79.899 Other long term (current) drug therapy
CPT/HCPCS: 36415; 71275; 80053; 80306; 81001; 85025; 85379; 86140; 87086; 96361; 96374; 96375; 99285; J1200; J2060; J2765; J7040; J8597; 99284

== ENCOUNTER 2018-11-03 12:37 | Emergency (ER) | payer MEDICAID ==
--- NOTE | 2018-11-03 13:41 | EDM.PDOC ---
ED HPI GENERAL MEDICAL PROBLEM - General Chief Complaint: Medication Administration Stated Complaint: NEED MORE MEDICATION Time Seen by Provider: 11/03/18 12:53 Source of Information: Reports: Patient, RN History Limitations: Reports: No Limitations - History of Present Illness INITIAL COMMENTS - FREE TEXT/NARRATIVE: 38 yo F comes in today for refills of her medications as she is to be admitted to [facility] for rehab for polysubstance abuse. She currently does not have a PCP, was previously prescribed these medications by Sindy Huff and has not been able to get in to see another doctor because "I didn't know getting the meds beforehand was a requirement- I thought they would take care of it at [facility]". Pt is currently on Gabapentin for "carpal tunnel and anxiety", Hydroxyzine "I haven't been taking these", Inderal (HTN), Olanzapine (antipsychotic), Sinequan (antidepressant, sleep). No other complaints at this time. - Related Data Allergies Allergy/AdvReac Type Severity Reaction Status Date / Time ondansetron Allergy Rash Verified 11/03/18 12:58 [From Zofran (as hydrochloride)] tramadol Allergy Seizure Verified 11/03/18 12:58 Home Meds: Home Meds Doxepin [SINEquan] 100 mg PO BEDTIME 08/20/17 [History] Gabapentin [Neurontin] 400 mg PO BID 08/20/17 [History] Gabapentin [Neurontin] 800 mg PO BEDTIME 08/20/17 [History] OLANZapine [Olanzapine] 10 mg PO BEDTIME 08/20/17 [History] hydrOXYzine pamoate [Hydroxyzine Pamoate] 50 mg PO Q6H PRN 08/20/17 [History] Propranolol [Inderal] 20 mg PO DAILY 10/28/18 [History] Acetaminophen [Tylenol] 650 mg PO Q4H PRN tablet 10/30/18 [Rx] Gabapentin [Neurontin] 400 mg PO BID 7 Days #14 cap 11/03/18 [Rx] Gabapentin [Neurontin] 800 mg PO BEDTIME 7 Days #7 tab 11/03/18 [Rx] Propranolol [Inderal] 20 mg PO DAILY 7 Days #7 tab 11/03/18 [Rx] Past Medical History HEENT History: Reports: None Cardiovascular History: Reports: Arrhythmia, Hypertension Respiratory History: Reports: PE Gastrointestinal History: Reports: None Genitourinary History: Reports: UTI, Recurrent 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 CATALOGUE COMPILER History: Ovarian cyst Musculoskeletal History: Reports: Neck Pain, Chronic Neurological History: Reports: Seizure, Other (See Below) Other Neuro History: epilepsy Psychiatric History: Reports: Anxiety, Depression Endocrine/Metabolic History: Reports: None Hematologic History: Reports: Other (See Below) Other Hematologic History: clotting disorder Immunologic History: Reports: None Oncologic (Cancer) History: Reports: None Dermatologic History: Reports: None - Infectious Disease History Infectious Disease History: Reports: Chicken Pox, Hepatitis C, MRSA - Past Surgical History Female Surgical History: Reports: Section, D&C, Tubal Ligation Social & Family History - Family History Family Medical History: Noncontributory Psychiatric: Reports: Anxiety, Depression, Emotional Problems - Caffeine Use Caffeine Use: Reports: Coffee - Living Situation & Occupation Living situation: Reports: with Spouse ED ROS GENERAL - Review of Systems Review Of Systems: ROS reveals no pertinent complaints other than HPI. ED EXAM, GENERAL - Physical Exam Exam: See Below Exam Limited By: No Limitations General Appearance: Alert, WD/WN, No Apparent Distress, Anxious Eye Exam: Bilateral Eye: EOMI, Normal Inspection, PERRL Ears: Normal External Exam, Hearing Grossly Normal Nose: Normal Inspection Head: Atraumatic, Normocephalic Neck: Normal Inspection, Supple, Non-Tender, Full Range of Motion Respiratory/Chest: No Respiratory Distress, Lungs Clear, Normal Breath Sounds, No Accessory Muscle Use, Chest Non-Tender Cardiovascular: Normal Peripheral Pulses, Regular Rate, Rhythm, No Edema, No Gallop, No JVD, No Murmur, No Rub GI/Abdominal: Normal Bowel Sounds, Soft, Non-Tender, No Organomegaly, No Distention, No Abnormal Bruit, No Mass Neurological: Alert, Oriented, CN II-XII Intact, Normal Cognition, Normal Gait, Normal Reflexes, No Motor/Sensory Deficits Psychiatric: Anxious Skin Exam: Warm, Dry, Intact, Normal Color, No Rash Course - Vital Signs Last Recorded V/S: Last Vital Signs Temp 98.6 F 11/03/18 12:54 Pulse 86 11/03/18 12:54 Resp 16 11/03/18 12:54 BP 156/85 H 11/03/18 12:54 Pulse Ox 100 11/03/18 12:54 - Re-Assessments/Exams Free Text/Narrative Re-Assessment/Exam: 11/03/18 13:30 Discussed with Ela Dunlap RN at [facility] and discussed that I am not comfortable prescribing the Olanzapine or Sinequan, the patient does not want a refill of Hydroxyzine, and that I would be willing to prescribe the Gabapentin and Inderal x1 week. She agrees with this plan. Departure - Departure Time of Disposition: 13:58 Disposition: Home, Self-Care 01 Condition: Fair Clinical Impression: Medication refill - Discharge Information *PRESCRIPTION DRUG MONITORING PROGRAM REVIEWED*: Not Applicable *COPY OF PRESCRIPTION DRUG MONITORING REPORT IN PATIENT TRACEY: Not Applicable Prescriptions: Gabapentin [Neurontin] 400 mg PO BID 7 Days #14 cap Gabapentin [Neurontin] 800 mg PO BEDTIME 7 Days #7 tab Propranolol [Inderal] 20 mg PO DAILY 7 Days #7 tab Referrals: PCP,None [Primary Care Provider] - Forms: ED Department Discharge Additional Instructions: You were seen in the ED today for medication refill. ED is not typically to get your medications refilled, so in the future recommend seeing your primary care provider. At this time, your Gabapentin and Inderal have been refilled. For all other refills, you will need to discuss with Ela Dunlap, SHREYA at [facility] once you arrive, as it was discussed with her that these other medications can't be refilled here.
[2018-11-03 14:39] VITALS: BP 141/96
== END 2018-11-03 14:35 | disposition home or self-care (01) ==
LOC: JD.ED 12:37
DX: Z76.0 Encounter for issue of repeat prescription (principal); I10 Essential (primary) hypertension; F41.9 Anxiety disorder, unspecified; F32.9 Major depressive disorder, single episode, unspecified; Z79.899 Other long term (current) drug therapy; Z88.8 Allergy status to other drugs, medicaments and biological substances; Z88.6 Allergy status to analgesic agent
CPT/HCPCS: 99281; 99283

== ENCOUNTER 2025-02-14 13:53 | Emergency (ER) | payer OTHER, MEDICAID ==
[2025-02-14 14:51] LABS: BASOPHILS ABSOLUTE AUTO 0.0 K/mm3 (0.0-0.2); BASOPHILS PERCENT AUTO 0.4 % (0.0-1.0); EOSINOPHILS ABSOLUTE AUTO 0.0 K/mm3 (0.0-0.4); EOSINOPHILS PERCENT AUTO 0.2 % (0.0-6.0); IMMATURE GRAN ABSOLUTE AUTO 0.01 K/mm3 (0.00-0.05); IMMATURE GRAN PERCENT AUTO 0.2 % (0.0-0.4); LYMPHOCYTES ABSOLUTE AUTO 1.3 K/mm3 (1.0-4.8); LYMPHOCYTES PERCENT AUTO 23.7 % (24.0-44.0); MEAN PLATELET VOLUME 10.7 fl (9.4-12.3); MONOCYTES ABSOLUTE AUTO 0.3 K/mm3 (0.0-0.8); MONOCYTES PERCENT AUTO 5.5 % (0.0-8.0); NEUTROPHILS ABSOLUTE AUTO 3.8 K/mm3 (1.8-7.7); NEUTROPHILS PERCENT AUTO 70.0 % (41.0-71.0); NRBC ABSOLUTE 0.00 (0.00-0.02); NRBC PERCENT 0.0 % (0.0-0.2); PLATELET COUNT,PLT 238 K/mm3 (150-400); RED BLOOD CELL COUNT 4.25 M/mm3 (4.10-5.30); WHITE BLOOD CELL COUNT,WBC 5.45 K/mm3 (3.9-11.3)
[2025-02-14 15:04] LABS: A/G RATIO 1.2 (1-2); ALANINE AMINOTRANSFERASE,ALT 22.0 U/L (14-59); ASPARTATE AMNIOTRANSFERASE,AST 22.0 U/L (15-37); BILIRUBIN TOTAL 0.5 mg/dL (0.2-1.0); BLOOD UREA NITROGEN,BUN 13.0 mg/dL (7-18); CARBON DIOXIDE,CO2 29.0 mEq/L (21-32); CHLORIDE,CL 105.0 mEq/L (98-107); CREATININE 0.8 mg/dL (0.55-1.02); EST CRCL DRUG DOSING (CG) 99.25 mL/min; ESTIMATED GFR 93.0 mL/min (>60); GLUCOSE RANDOM 104.0 mg/dL (70-99); POTASSIUM,K 4.4 mEq/L (3.5-5.1); PROTEIN TOTAL,TP 7.8 g/dl (6.4-8.2); SODIUM,NA 143.0 mEq/L (136-145); TROPONIN I HIGH SENSITIVITY 5.0 pg/mL (<=51)
[2025-02-14] MEDS: Ketorolac 30 MG/ML SDV IVPUSH ONE (16:39)
[2025-02-14] MEDS: Sodium Chloride 0.9% 10 ML Syringe FLUSH PRN (16:41)
[2025-02-14 17:41] VITALS: BP 109/74; PULSE 76
== END 2025-02-14 16:45 | disposition home or self-care (01) ==
LOC: JD.ED 13:53
DX: R07.89 Other chest pain (principal); I10 Essential (primary) hypertension; Z86.16 Personal history of COVID-19; Z88.5 Allergy status to narcotic agent; Z79.899 Other long term (current) drug therapy
CPT/HCPCS: 36415; 71046; 80053; 84484; 85025; 85379; 93005; 96374; 99285; J1885; 93010; 99283